=== PATIENT | male | born 1935 | race Caucasian/White ===

== ENCOUNTER 2018-06-26 10:53 | Emergency (ER) | payer MEDICARE ==
[~2018-06-26] VITALS: Ht 182.9 cm; Wt 102.6 kg
[~2018-06-26 10:53] MED LIST: ALBU8HFA PO; ASPI-1053 PO; BETA1TAB20 PO; CALC600T12 PO; CHLO4TAB PO; CLOP75TA15 PO; COU4T PO; DIPH-423 PO; FERR134T2 PO; FINA5TAB11 PO; HYDR-4353 PO; IRBE75TA9 PO; LORA0.5T PO; METO25TA6 PO; MULT-436 PO; OMEG1CAP54 PO; PANT40TA39 PO; PRED1TAB PO; ROSU20TA PO; TERA5CAP4 PO
[2018-06-26 11:40] LABS: BASOPHILS # (AUTO) 0.1 X10'3 (0-0.2); BASOPHILS % (AUTO) 0.8 % (0-1); EOSINOPHILS # (AUTO) 0.3 X10'3 (0-0.9); EOSINOPHILS % (AUTO) 2.8 % (0-6); HEMATOCRIT 37.2 % (42.0-52.0); HEMOGLOBIN 12.6 g/dl (14.0-17.9); LYMPHOCYTES % (AUTO) 10.6 % (21-51); MEAN CORPUSCULAR HEMOGLOBIN 32.8 PG (27.0-31.0); MEAN CORPUSCULAR HGB CONC 33.9 % (33.0-36.5); MEAN CORPUSCULAR VOLUME 96.8 FL (78-98); MEAN PLATELET VOLUME 6.8 FL (7.4-10.4); MONOCYTES # (AUTO) 0.8 X10'3 (0-0.9); MONOCYTES % (AUTO) 9.3 % (2-12); NEUTROPHILS % (AUTO) 76.5 % (42-75); PLATELET COUNT 190 X10'3 (140-440); RED BLOOD COUNT 3.84 X10'6 (4.70-6.10); RED CELL DISTRIBUTION WIDTH 13.4 % (11.5-14.5); WHITE BLOOD COUNT 9.1 X10'3 (4.5-11.0)
[2018-06-26 11:53] LABS: PARTIAL THROMBOPLASTIN TIME 25 SECONDS (22-32)
[2018-06-26 12:01] LABS: ALANINE AMINOTRANSFERASE 18 U/L (12-78); ALBUMIN 3.7 G/DL (3.4-5.0); ALBUMIN/GLOBULIN RATIO 1.1 (1.1-1.5); ALKALINE PHOSPHATASE 78 IU/L (46-116); ANION GAP 12 (8-16); ASPARTATE AMINO TRANSFERASE 21 U/L (10-37); BILIRUBIN,TOTAL 0.5 MG/DL (0.1-1.0); BLOOD UREA NITROGEN 31 MG/DL (7-18); BUN/CREATININE RATIO 22.6 (5.4-32.0); CALCIUM 8.9 MG/DL (8.5-10.1); CHLORIDE 101 MMOL/L (99-107); CREATININE 1.37 MG/DL (0.60-1.10); GLUCOSE 115 MG/DL (70-104); POTASSIUM 4.4 MMOL/L (3.5-5.1); SODIUM 137 MMOL/L (135-145); TOTAL CARBON DIOXIDE 24.3 MMOL/L (24-32); eGFR 50 ML/MIN
[2018-06-26] MEDS ORDERED: TRAM50TA2 PO (12:54)
[2018-06-26 13:03] VITALS: BP 163/90
== END 2018-06-26 13:07 | disposition home or self-care (01) ==
LOC: ER 10:53
DX: S51.032A Puncture wound without foreign body of left elbow, initial encounter (principal); S40.012A Contusion of left shoulder, initial encounter; S09.90XA Unspecified injury of head, initial encounter; I25.10 Atherosclerotic heart disease of native coronary artery without angina pectoris; E78.00 Pure hypercholesterolemia, unspecified; I10 Essential (primary) hypertension; G89.29 Other chronic pain; Z86.73 Personal history of transient ischemic attack (TIA), and cerebral infarction without residual deficits; Z98.61 Coronary angioplasty status; Z98.890 Other specified postprocedural states; Z88.2 Allergy status to sulfonamides; Z88.8 Allergy status to other drugs, medicaments and biological substances; Z79.82 Long term (current) use of aspirin; Z79.01 Long term (current) use of anticoagulants; Z79.899 Other long term (current) drug therapy; W01.0XXA Fall on same level from slipping, tripping and stumbling without subsequent striking against object, initial encounter; Y93.89 Activity, other specified; Y92.89 Other specified places as the place of occurrence of the external cause; Y99.8 Other external cause status
CPT/HCPCS: 36415; 70450; 71045; 72125; 72170; 73030; 73080; 80053; 84484; 85025; 85610; 85730; 93005; 99284

== ENCOUNTER 2018-08-12 19:59 | Emergency (ER) | payer MEDICARE ==
--- NOTE | 2018-08-12 20:49 | NUR ---
Patient tranported to CT on monitor by RN.
[2018-08-12] MEDS ORDERED: HYDROcodone/acetaminophen 10/325mg tab PO ONE (21:55)
[2018-08-12] MEDS ORDERED: tranexamic acid inj. 1,000 MG in normal saline 100ml IV soln 100 ML IV ONE (22:25)
[2018-08-12] MEDS ORDERED: ondansetron/PF 4mg/2ml inj IV ONE (23:00)
[2018-08-13] MEDS ORDERED: CEPH500C5 PO (00:20)
[2018-08-13] MEDS ORDERED: HYDR-4353 PO (00:20)
[2018-08-13] MEDS ORDERED: ondansetron/PF 4mg/2ml inj IV ONE (00:25)
[2018-08-13] MEDS ORDERED: ONDA4TAB6 PO (00:33)
[2018-08-13 01:09] VITALS: BP 132/98
== END 2018-08-13 01:12 | disposition home or self-care (01) ==
LOC: ER 19:59
DX: S02.32XA Fracture of orbital floor, left side, initial encounter for closed fracture (principal); S02.40DA Maxillary fracture, left side, initial encounter for closed fracture; S80.211A Abrasion, right knee, initial encounter; I25.10 Atherosclerotic heart disease of native coronary artery without angina pectoris; E78.00 Pure hypercholesterolemia, unspecified; I10 Essential (primary) hypertension; G89.29 Other chronic pain; Z86.73 Personal history of transient ischemic attack (TIA), and cerebral infarction without residual deficits; Z98.61 Coronary angioplasty status; Z98.890 Other specified postprocedural states; Z88.2 Allergy status to sulfonamides; Z88.8 Allergy status to other drugs, medicaments and biological substances; Z79.82 Long term (current) use of aspirin; Z79.01 Long term (current) use of anticoagulants; Z79.899 Other long term (current) drug therapy; W18.39XA Other fall on same level, initial encounter; Y93.89 Activity, other specified; Y92.89 Other specified places as the place of occurrence of the external cause; Y99.8 Other external cause status
CPT/HCPCS: 70450; 70486; 71045; 71100; 82948; 96365; 96375; 96376; 99284; J2405; J7030

== ENCOUNTER 2018-10-12 09:46 | Emergency (ER) | payer MEDICARE ==
[~2018-10-12] VITALS: Ht 182.9 cm; Wt 104.5 kg
[~2018-10-12 09:46] MED LIST changes: +CEPH500C5 PO; +ONDA4TAB6 PO; -ROSU20TA PO; +ROSU20TA2 PO
[2018-10-12 10:26] LABS: BASOPHILS # (AUTO) 0.1 X10'3 (0-0.2); BASOPHILS % (AUTO) 1.4 % (0-1); EOSINOPHILS # (AUTO) 0.3 X10'3 (0-0.9); EOSINOPHILS % (AUTO) 3.5 % (0-6); HEMATOCRIT 25.4 % (42.0-52.0); HEMOGLOBIN 8.5 g/dl (14.0-17.9); LYMPHOCYTES % (AUTO) 12.1 % (21-51); MEAN CORPUSCULAR HEMOGLOBIN 31.7 PG (27.0-31.0); MEAN CORPUSCULAR HGB CONC 33.5 g/dL (33.0-36.5); MEAN CORPUSCULAR VOLUME 94.5 FL (78-98); MEAN PLATELET VOLUME 6.7 FL (7.4-10.4); MONOCYTES # (AUTO) 0.8 X10'3 (0-0.9); MONOCYTES % (AUTO) 10.1 % (2-12); NEUTROPHILS # (AUTO) 6.1 X10'3 (1.8-7.7); NEUTROPHILS % (AUTO) 72.9 % (42-75); PLATELET COUNT 363 X10'3 (140-440); RED BLOOD COUNT 2.69 X10'6 (4.70-6.10); RED CELL DISTRIBUTION WIDTH 15.2 % (11.5-14.5); WHITE BLOOD COUNT 8.3 X10'3 (4.5-11.0)
[2018-10-12 10:38] LABS: ALANINE AMINOTRANSFERASE 13 U/L (12-78); ALBUMIN 2.6 G/DL (3.4-5.0); ALBUMIN/GLOBULIN RATIO 0.6 (1.1-1.5); ALKALINE PHOSPHATASE 130 IU/L (46-116); ANION GAP 7 (8-16); ASPARTATE AMINO TRANSFERASE 17 U/L (10-37); BILIRUBIN,TOTAL 0.3 MG/DL (0.1-1.0); BLOOD UREA NITROGEN 23 MG/DL (7-18); BUN/CREATININE RATIO 16.9 (5.4-32.0); CHLORIDE 102 MMOL/L (99-107); CREATININE 1.36 MG/DL (0.60-1.10); GLUCOSE 132 MG/DL (70-104); POTASSIUM 4.1 MMOL/L (3.5-5.1); SODIUM 138 MMOL/L (135-145); TOTAL CARBON DIOXIDE 28.7 MMOL/L (24-32); eGFR 50 ML/MIN
[2018-10-12] MEDS ORDERED: normal saline 1000ml 1,000 ML IV ONE (10:55)
[2018-10-12] MEDS ORDERED: clindamycin phosphate inj 600 MG in normal saline 50ml IV soln 50 ML IV ONE (11:00)
[2018-10-12] MEDS ORDERED: clindamycin 600mg/D5W 50ml 50 ML IV ONE (11:05)
[2018-10-12 11:33] LABS: CLARITY,URINE CLEAR (Clear); COLOR,URINE YELLOW (Yellow); GLUCOSE, URINE NEGATIVE (Neg); KETONES,URINE NEGATIVE (Neg); LEUKOCYTE ESTERASE ,URINE NEGATIVE (Neg); NITRITES, URINE NEGATIVE (Neg); OCCULT BLOOD,URINE NEGATIVE (Neg); PROTEIN,URINE NEGATIVE (Neg); UROBILINOGEN,URINE 0.2 E.U/dL (0.2-1.0)
[2018-10-12] MEDS ORDERED: iohexol 350MG/ML 100ml bottle IV ONE (11:36)
[2018-10-12] MEDS ORDERED: iohexol 300mg/ml 100ml inj. ONE (11:40)
[2018-10-12 12:08] LABS: UA COLLECTION TYPE VOIDED
--- NOTE | 2018-10-12 12:46 | NUR ---
Unable to get ahold of Dr. Ocasio- IR. Call placed to Danni (director of imaging) to have her get in touch with him.
[2018-10-12] MEDS ORDERED: LORazepam 2 mg/ml vial IV ONE (13:40)
[2018-10-12 14:39] LABS: INR 1.1 INR; PROTHROMBIN TIME 10.9 SECONDS (9.0-12.0)
[2018-10-12] MEDS ORDERED: LIDOcaine 1%/PF 5ML 10 MG/ML VIAL ONE (14:53)
--- NOTE | 2018-10-12 15:11 | NUR ---
PT SLEEPING, NO APPARENT DISTRESS, RESPIRATIONS SPONTANEOUS AND REGULAR.
[2018-10-12 15:13] VITALS: BP 105/69
[2018-10-12 15:28] VITALS: BP 101/69
[2018-10-12] MEDS ORDERED: AMOX-419 PO (16:44)
[2018-10-12] MEDS ORDERED: CLIN150C2 PO (16:44)
[2018-10-12 17:14] VITALS: BP 161/114
== END 2018-10-12 18:06 | disposition home or self-care (01) ==
LOC: ER 09:46
DX: I97.89 Other postprocedural complications and disorders of the circulatory system, not elsewhere classified (principal); L03.314 Cellulitis of groin; I25.10 Atherosclerotic heart disease of native coronary artery without angina pectoris; E78.00 Pure hypercholesterolemia, unspecified; G89.29 Other chronic pain; I10 Essential (primary) hypertension; Z86.73 Personal history of transient ischemic attack (TIA), and cerebral infarction without residual deficits; Z95.5 Presence of coronary angioplasty implant and graft; Z98.890 Other specified postprocedural states; Z88.8 Allergy status to other drugs, medicaments and biological substances; Z88.2 Allergy status to sulfonamides; Z79.82 Long term (current) use of aspirin; Z79.899 Other long term (current) drug therapy; Z79.01 Long term (current) use of anticoagulants
CPT/HCPCS: 10160; 36415; 72193; 76942; 80053; 81003; 83605; 84145; 85025; 85610; 87040; 87070; 96365; 96375; 99285; J2001; J2060; J7030; Q9967; 87077; J3490; J7040

== ENCOUNTER 2018-10-28 08:47 | Outpatient (CLI) | payer MEDICARE | END 2018-10-28 23:59 | disposition home or self-care (01) | LOC: VAS 08:47 | PROVIDERS: ATTEND Surgery | DX: R60.0 Localized edema (principal); M79.605 Pain in left leg; L76.34 Postprocedural seroma of skin and subcutaneous tissue following other procedure; I10 Essential (primary) hypertension; Z87.891 Personal history of nicotine dependence | CPT/HCPCS: 76882; 93971 ==

== ENCOUNTER 2018-11-04 10:44 | Day surgery (SDC) | payer MEDICARE ==
[~2018-11-04] VITALS: Ht 182.9 cm; Wt 102.2 kg
[2018-11-04 12:05] VITALS: BP 150/77
[2018-11-04] MEDS ORDERED: LIDOcaine 1% 30ml preserv. free vial IJ STA (12:13)
[2018-11-04] MEDS ORDERED: APIX5TAB3 PO (12:19)
[2018-11-04] MEDS ORDERED: CHOL100046 PO (12:19)
[2018-11-04] MEDS ORDERED: ACET-2119 PO (12:19)
[2018-11-04] MEDS ORDERED: FERR325T28 PO (12:19)
[2018-11-04] MEDS ORDERED: MAGN400T29 PO (12:19)
[2018-11-04] MEDS ORDERED: GABA-532 PO (12:19)
[2018-11-04] MEDS ORDERED: HYDR-3686 PO (12:19)
[2018-11-04] MEDS ORDERED: FURO-149 PO (12:19)
[2018-11-04] MEDS ORDERED: ATOR40TA PO (12:19)
[2018-11-04] MEDS ORDERED: PHEN15SP NAS (12:19)
[2018-11-04] MEDS ORDERED: NITR0.4T51 SL (12:19)
[2018-11-04] MEDS ORDERED: LORA0.5T PO (12:19)
[2018-11-04 13:00] VITALS: BP 166/81
[2018-11-04 13:25] VITALS: BP 165/49
[2018-11-04 15:45] VITALS: BP 164/78
[2018-11-04 18:05] VITALS: BP 151/69
== END 2018-11-04 18:05 | disposition home or self-care (01) ==
LOC: SSTAY O 10:44
PROVIDERS: ATTEND Radiology Vascular & Interventional Radiology
DX: L76.34 Postprocedural seroma of skin and subcutaneous tissue following other procedure (principal); I25.10 Atherosclerotic heart disease of native coronary artery without angina pectoris; E78.5 Hyperlipidemia, unspecified; Z98.890 Other specified postprocedural states; I12.9 Hypertensive chronic kidney disease with stage 1 through stage 4 chronic kidney disease, or unspecified chronic kidney disease; G89.29 Other chronic pain; Z86.718 Personal history of other venous thrombosis and embolism; N18.3 Chronic kidney disease, stage 3 (moderate); Z86.73 Personal history of transient ischemic attack (TIA), and cerebral infarction without residual deficits
CPT/HCPCS: 10160; 76942; 87070; 87075; 93971; J3490; 10030

== ENCOUNTER 2018-11-05 08:54 | Emergency (ER) | payer MEDICARE ==
[~2018-11-05] VITALS: Ht 182.9 cm; Wt 100.1 kg
[~2018-11-05 08:54] MED LIST changes: +ACET-2119 PO; +APIX5TAB3 PO; -ASPI-1053 PO; +ATOR40TA PO; -CALC600T12 PO; -CEPH500C5 PO; -CHLO4TAB PO; +CHOL100046 PO; -CLOP75TA15 PO; -COU4T PO; -DIPH-423 PO; -FERR134T2 PO; +FERR325T28 PO; +FURO-149 PO; +GABA-532 PO; +HYDR-3686 PO; -IRBE75TA9 PO; +MAGN400T29 PO; +NITR0.4T51 SL; -OMEG1CAP54 PO; -ONDA4TAB6 PO; -PANT40TA39 PO; +PHEN15SP NAS; -PRED1TAB PO; -ROSU20TA2 PO; -TERA5CAP4 PO
[2018-11-05 10:23] LABS: BASOPHILS % (AUTO) 0.3 % (0-1); EOSINOPHILS # (AUTO) 0.3 X10'3 (0-0.9); EOSINOPHILS % (AUTO) 4.3 % (0-6); HEMATOCRIT 31.3 % (42.0-52.0); HEMOGLOBIN 10.3 g/dl (14.0-17.9); LYMPHOCYTES # (AUTO) 0.8 X10'3 (1.1-4.8); LYMPHOCYTES % (AUTO) 9.9 % (21-51); MEAN CORPUSCULAR HEMOGLOBIN 29.8 PG (27.0-31.0); MEAN CORPUSCULAR HGB CONC 32.8 g/dL (33.0-36.5); MEAN CORPUSCULAR VOLUME 90.7 FL (78-98); MEAN PLATELET VOLUME 6.8 FL (7.4-10.4); MONOCYTES # (AUTO) 0.7 X10'3 (0-0.9); MONOCYTES % (AUTO) 8.8 % (2-12); NEUTROPHILS # (AUTO) 6.1 X10'3 (1.8-7.7); NEUTROPHILS % (AUTO) 76.7 % (42-75); PLATELET COUNT 302 X10'3 (140-440); RED BLOOD COUNT 3.45 X10'6 (4.70-6.10); RED CELL DISTRIBUTION WIDTH 16.5 % (11.5-14.5); WHITE BLOOD COUNT 7.9 X10'3 (4.5-11.0)
[2018-11-05 10:32] LABS: ALANINE AMINOTRANSFERASE 12 U/L (12-78); ALBUMIN/GLOBULIN RATIO 0.7 (1.1-1.5); ALKALINE PHOSPHATASE 109 IU/L (46-116); ANION GAP 8 (8-16); ASPARTATE AMINO TRANSFERASE 18 U/L (10-37); BILIRUBIN,TOTAL 0.4 MG/DL (0.1-1.0); BLOOD UREA NITROGEN 21 MG/DL (7-18); BUN/CREATININE RATIO 13.5 (5.4-32.0); CALCIUM 9.7 MG/DL (8.5-10.1); CHLORIDE 104 MMOL/L (99-107); CREATININE 1.55 MG/DL (0.60-1.10); GLUCOSE 109 MG/DL (70-104); POTASSIUM 4.1 MMOL/L (3.5-5.1); SODIUM 141 MMOL/L (135-145); TOTAL CARBON DIOXIDE 29.1 MMOL/L (24-32); TOTAL PROTEIN 7.4 G/DL (6.4-8.2); eGFR 43 ML/MIN
[2018-11-05 10:57] VITALS: BP 109/64
[2018-11-05] MEDS ORDERED: iohexol 300mg/ml 100ml inj. ONE (11:08)
--- NOTE | 2018-11-05 11:31 | NUR ---
back from ct scan in stable condition.
== END 2018-11-05 13:01 | disposition home or self-care (01) ==
LOC: ER 08:54
DX: R10.32 Left lower quadrant pain (principal); L53.8 Other specified erythematous conditions; I25.10 Atherosclerotic heart disease of native coronary artery without angina pectoris; E78.00 Pure hypercholesterolemia, unspecified; I10 Essential (primary) hypertension; G89.29 Other chronic pain; Z86.73 Personal history of transient ischemic attack (TIA), and cerebral infarction without residual deficits; Z95.5 Presence of coronary angioplasty implant and graft; Z98.890 Other specified postprocedural states; Z87.891 Personal history of nicotine dependence; Z79.01 Long term (current) use of anticoagulants; Z79.899 Other long term (current) drug therapy; Z79.82 Long term (current) use of aspirin; Z88.8 Allergy status to other drugs, medicaments and biological substances
CPT/HCPCS: 36415; 74176; 80053; 84145; 85025; 99285; Q9967

== ENCOUNTER 2018-11-11 13:49 | Inpatient (IN) | payer MEDICARE ==
[~2018-11-11] VITALS: Ht 182.9 cm; Wt 101.1 kg
[~2018-11-11 13:49] MED LIST changes: +ASPI-1053 PO; +CALC600T12 PO; +CEPH500C5 PO; +CHLO4TAB PO; +CLOP75TA15 PO; +COU4T PO; +DIPH-423 PO; +FERR134T2 PO; +IRBE75TA9 PO; +OMEG1CAP54 PO; +ONDA4TAB6 PO; +PANT40TA39 PO; +PRED1TAB PO; +ROSU20TA2 PO; +TERA5CAP4 PO
[2018-11-11 14:57] LABS: BASOPHILS % (AUTO) 0.3 % (0-1); EOSINOPHILS # (AUTO) 0.3 X10'3 (0-0.9); EOSINOPHILS % (AUTO) 2.2 % (0-6); HEMATOCRIT 32.9 % (42.0-52.0); HEMOGLOBIN 10.5 g/dl (14.0-17.9); LYMPHOCYTES # (AUTO) 0.6 X10'3 (1.1-4.8); LYMPHOCYTES % (AUTO) 4.1 % (21-51); MEAN CORPUSCULAR VOLUME 90.5 FL (78-98); MEAN PLATELET VOLUME 6.8 FL (7.4-10.4); MONOCYTES # (AUTO) 1.2 X10'3 (0-0.9); MONOCYTES % (AUTO) 7.9 % (2-12); NEUTROPHILS # (AUTO) 13.4 X10'3 (1.8-7.7); NEUTROPHILS % (AUTO) 85.5 % (42-75); PLATELET COUNT 319 X10'3 (140-440); RED BLOOD COUNT 3.63 X10'6 (4.70-6.10); RED CELL DISTRIBUTION WIDTH 16.8 % (11.5-14.5); WHITE BLOOD COUNT 15.6 X10'3 (4.5-11.0)
[2018-11-11 15:12] LABS: ALANINE AMINOTRANSFERASE 12 U/L (12-78); ALBUMIN 3.2 G/DL (3.4-5.0); ALBUMIN/GLOBULIN RATIO 0.7 (1.1-1.5); ALKALINE PHOSPHATASE 111 IU/L (46-116); ANION GAP 12 (8-16); ASPARTATE AMINO TRANSFERASE 20 U/L (10-37); BILIRUBIN,TOTAL 0.4 MG/DL (0.1-1.0); BLOOD UREA NITROGEN 16 MG/DL (7-18); CALCIUM 9.2 MG/DL (8.5-10.1); CHLORIDE 99 MMOL/L (99-107); CREATININE 1.46 MG/DL (0.60-1.10); GLUCOSE 100 MG/DL (70-104); POTASSIUM 3.7 MMOL/L (3.5-5.1); SODIUM 138 MMOL/L (135-145); TOTAL CARBON DIOXIDE 27.5 MMOL/L (24-32); TOTAL PROTEIN 7.9 G/DL (6.4-8.2); eGFR 46 ML/MIN
[2018-11-11 15:13] LABS: PARTIAL THROMBOPLASTIN TIME 29 SECONDS (22-32)
[2018-11-11 15:14] LABS: ANISOCYTOSIS 1+; PLATELET ESTIMATE NORMAL; TOTAL CELLS COUNTED 100
[2018-11-11] MEDS ORDERED: acetaminophen 325mg tablet PO ONE (16:20)
[2018-11-11 16:52] LABS: CLARITY,URINE CLEAR (Clear); COLOR,URINE YELLOW (Yellow); GLUCOSE, URINE NEGATIVE (Neg); KETONES,URINE NEGATIVE (Neg); LEUKOCYTE ESTERASE ,URINE NEGATIVE (Neg); NITRITES, URINE NEGATIVE (Neg); OCCULT BLOOD,URINE TRACE-LYSED (Neg); PROTEIN,URINE NEGATIVE (Neg); UROBILINOGEN,URINE 0.2 E.U/dL (0.2-1.0)
[2018-11-11 16:55] LABS: UA COLLECTION TYPE URINAL
[2018-11-11 17:03] LABS: BACTERIA,URINE NONE SEEN /HPF (Neg); MUCUS STRANDS NONE SEEN /LPF (Neg); RBC,URINE NONE SEEN /HPF (0-2); SQUAMOUS EPITHELIAL CELL,UR NONE SEEN /LPF (FEW); WBC,URINE NONE SEEN /HPF (0-4)
[2018-11-11] MEDS ORDERED: vancomycin/NS 1 GM ADD-VANTAGE 250 ML IV ONE (17:50)
[2018-11-11] MEDS ORDERED: potassium Cl 20 mEq SR tablet PO PRN ×2 (18:05)
[2018-11-11] MEDS ORDERED: magnesium 2GM in 50ml NS 50 ML IV PRN (18:05)
[2018-11-11] MEDS ORDERED: potassium Cl 40MEQ/NS 500ml 500 ML IV PRN ×2 (18:05)
[2018-11-11] MEDS ORDERED: piperacillin/tazo 3.375gm/50ml 50 ML IV ONE (18:05)
[2018-11-11] MEDS ORDERED: magnesium Cl slow-release 64mg tablet PO PRN (18:05)
[2018-11-11] MEDS ORDERED: magnesium 4gm in 100ml NS 100 ML IV PRN (18:05)
[2018-11-11] MEDS ORDERED: acetaminophen 325mg tablet PO PRN ×2 (18:05)
[2018-11-11] MEDS: normal saline 1000ml 1,000 ML IV SCH (18:16)
[2018-11-11] MEDS: ondansetron/PF 4mg/2ml inj IV PRN (19:47)
[2018-11-11] MEDS: HYDROcodone/acetaminophen 5mg/325mg tablet PO PRN ×2 (19:48→23:58)
[2018-11-11] MEDS: docusate sod 100mg capsule PO SCH (20:19)
[2018-11-11] MEDS: heparin, porcine 5000 units/ml vial SQ SCH (20:19)
[2018-11-11 21:30] VITALS: BP 101/51
[2018-11-12] VITALS (9 sets, daily range): BP systolic 109–160; BP diastolic 51–74
--- NOTE | 2018-11-12 06:15 | NUR ---
0615 pt really rude and verbally aggressive at this time. oxygen saturation checked and was in the low 80s, pt put on 4L NC. However, pt will not breath through nose and refuses to allowing nursing to put the cannula in his mouth. pt stated "I will show you where to shove this" if asked to put the NC in his mouth. Pt spitting up clear fluids. will call
--- NOTE | 2018-11-12 06:15 | NUR ---
Problems reprioritized. Patient report given, questions answered & plan of care reviewed with Rodriguez RN. Pt in distress, having difficulty breathing see other notes.
--- NOTE | 2018-11-12 06:30 | NUR ---
Patient in room [facility] 359. I have received report from SHANE Cedeno and had the opportunity to ask questions and assume patient care.
--- NOTE | 2018-11-12 06:35 | NUR ---
Dr. Mondragon was called. pt complaining of nervousness and having a difficulty breathing. pt shaking. BP 146/74, oxygen 82-89% on 4L NC. when pt allowed the NC to be placed in mouth and sat up oxygen 91-94%. temp 99.2F, heart rate 71-108 pt currently in afib according to tele. 0645 Dr Mondragon came up and saw the pt. Stated "lungs don't sound wet" and ordered IS to be given and stat CXR. IS given to pt. pt refusing to use IS and states that it causes him to "hyperventilate." Pt tried to use IS once, barely, and stated "I already tried, you saw me" pt annoyed at this time. will make day shift aware of new orders. Addendum: 11/12/18 at 0713 by Pao Al RN Dr. Mondragon was called. pt complaining of nervousness and having a difficulty breathing. pt shaking. BP 146/74, oxygen 82-89% on 4L NC. when pt allowed the NC to be placed in mouth and sat up oxygen 91-94%. temp 99.2F, heart rate 71-108 pt currently in afib according to tele. pt is also spitting up clear fluid 0645 Dr Mondragon came up and saw the pt. Stated "lungs don't sound wet" and ordered IS to be given and stat CXR. IS given to pt. pt refusing to use IS and states that it causes him to "hyperventilate." Pt tried to use IS once, barely, and stated "I already tried, you saw me" pt annoyed at this time. will make day shift aware of new orders.
[2018-11-12] MEDS: heparin, porcine 5000 units/ml vial SQ SCH ×2 (08:00→20:10)
[2018-11-12] MEDS: docusate sod 100mg capsule PO SCH ×2 (08:00→19:56)
[2018-11-12] MEDS: K and/or MAG REPLACEMENT MC SCH (08:00)
[2018-11-12 08:21] LABS: EOSINOPHILS # (AUTO) 0.1 X10'3 (0-0.9)
[2018-11-12] MEDS: normal saline 1000ml 1,000 ML IV SCH ×2 (08:22→19:00)
[2018-11-12 08:23] LABS: BASOPHILS % (AUTO) 0 % (0-1); EOSINOPHILS % (AUTO) 0.5 % (0-6); HEMATOCRIT 31.1 % (42.0-52.0); LYMPHOCYTES # (AUTO) 0.5 X10'3 (1.1-4.8); LYMPHOCYTES % (AUTO) 2.9 % (21-51); MEAN CORPUSCULAR HGB CONC 32.2 g/dL (33.0-36.5); MEAN CORPUSCULAR VOLUME 90.1 FL (78-98); MEAN PLATELET VOLUME 6.9 FL (7.4-10.4); MONOCYTES # (AUTO) 1.2 X10'3 (0-0.9); MONOCYTES % (AUTO) 6.7 % (2-12); NEUTROPHILS # (AUTO) 16.7 X10'3 (1.8-7.7); NEUTROPHILS % (AUTO) 89.9 % (42-75); PLATELET COUNT 277 X10'3 (140-440); RED BLOOD COUNT 3.45 X10'6 (4.70-6.10); RED CELL DISTRIBUTION WIDTH 17.1 % (11.5-14.5); WHITE BLOOD COUNT 18.5 X10'3 (4.5-11.0)
[2018-11-12 08:33] LABS: ALBUMIN 2.8 G/DL (3.4-5.0); ANION GAP 10 (8-16); BLOOD UREA NITROGEN 18 MG/DL (7-18); BUN/CREATININE RATIO 11.3 (5.4-32.0); CALCIUM 9.1 MG/DL (8.5-10.1); CHLORIDE 101 MMOL/L (99-107); CREATININE 1.59 MG/DL (0.60-1.10); GLUCOSE 127 MG/DL (70-104); MAGNESIUM 1.8 MG/DL (1.5-2.4); POTASSIUM 3.9 MMOL/L (3.5-5.1); SODIUM 136 MMOL/L (135-145); TOTAL CARBON DIOXIDE 24.7 MMOL/L (24-32); eGFR 42 ML/MIN
[2018-11-12 09:40] LABS: TOTAL CELLS COUNTED 100
[2018-11-12 09:43] LABS: ANISOCYTOSIS 1+; PLATELET ESTIMATE NORMAL
[2018-11-12] MEDS ORDERED: LIDOcaine 1%/PF 5ML 10 MG/ML VIAL ONE (12:22)
--- NOTE | 2018-11-12 16:00 | NUR ---
Received call from lab regarding this patient's drainage from L groin wound that was drained. gram positive cocci in clusters. NOtified Dr. Fallon. no new orders.
[2018-11-12] MEDS: piperacillin/tazo 3.375gm/50ml 50 ML IV SCH ×2 (16:10→23:48)
[2018-11-12] MEDS: aspirin 81mg tablet.DR PO SCH (16:10)
[2018-11-12 16:22] LABS: LYMPHOCYTES,BODY FLUID 3 %; MONOCYTES,BODY FLUID 1 %; NEUTROPHILS,BODY FLUID 96 %
[2018-11-12 16:24] LABS: BF RBC COUNT 267296 /CU MM; BF WBC COUNT 18726 /CU MM (0-1000); BFAPPEAR BLOODY; BFCOLOR RED; BFVOLUME 60 ML
[2018-11-12] MEDS: ondansetron/PF 4mg/2ml inj IV PRN (18:33)
--- NOTE | 2018-11-12 18:37 | NUR ---
Problems reprioritized. Patient report given, questions answered & plan of care reviewed with SHANE Cedeno.
[2018-11-12] MEDS: lactobacillus rhamnosus 10,000 MMU CELLS/CAPSULE PO SCH (19:56)
--- NOTE | 2018-11-12 23:55 | NUR ---
PT was short of breath. requested inhaler. called Dr. Flannery, RT eval and treat was orders. will continue to monitor.
[2018-11-13] VITALS (15 sets, daily range): BP systolic 90–186; BP diastolic 45–90
--- NOTE | 2018-11-13 00:11 | NUR ---
Dr. Flannery made aware of 8 beat run of V-tach. RR 16, 96% RA, 132/51, HR 70. pt states he feels just fine. K 3.9, Mg 1.8. NO new orders. will continue to monitor.
[2018-11-13] MEDS ORDERED: albuterol 2.5 MG/3 ML nebule NEB PRN (00:20)
[2018-11-13] MEDS ORDERED: albuterol 2.5 MG/3 ML nebule ONE (00:26)
[2018-11-13] MEDS: normal saline 1000ml 1,000 ML IV SCH ×2 (05:00→18:34)
--- NOTE | 2018-11-13 06:35 | NUR ---
Problems reprioritized. Patient report given, questions answered & plan of care reviewed with Tiesha LYNN. pt nervous about surgery. call light and frq used belongings within reach. no signs of distress. a/o.
[2018-11-13 06:39] LABS: BASOPHILS # (AUTO) 0.1 X10'3 (0-0.2); BASOPHILS % (AUTO) 0.8 % (0-1); EOSINOPHILS # (AUTO) 0.2 X10'3 (0-0.9); EOSINOPHILS % (AUTO) 1.1 % (0-6); HEMATOCRIT 30.1 % (42.0-52.0); HEMOGLOBIN 9.7 g/dl (14.0-17.9); LYMPHOCYTES # (AUTO) 1.1 X10'3 (1.1-4.8); LYMPHOCYTES % (AUTO) 7.3 % (21-51); MEAN CORPUSCULAR HEMOGLOBIN 29.1 PG (27.0-31.0); MEAN CORPUSCULAR HGB CONC 32.2 g/dL (33.0-36.5); MEAN CORPUSCULAR VOLUME 90.1 FL (78-98); MEAN PLATELET VOLUME 6.8 FL (7.4-10.4); MONOCYTES # (AUTO) 1.1 X10'3 (0-0.9); MONOCYTES % (AUTO) 7.5 % (2-12); NEUTROPHILS # (AUTO) 12.3 X10'3 (1.8-7.7); NEUTROPHILS % (AUTO) 83.3 % (42-75); PLATELET COUNT 241 X10'3 (140-440); RED BLOOD COUNT 3.34 X10'6 (4.70-6.10); RED CELL DISTRIBUTION WIDTH 16.6 % (11.5-14.5); WHITE BLOOD COUNT 14.7 X10'3 (4.5-11.0)
[2018-11-13 06:49] LABS: ALBUMIN 2.6 G/DL (3.4-5.0); ANION GAP 10 (8-16); BLOOD UREA NITROGEN 19 MG/DL (7-18); BUN/CREATININE RATIO 12.6 (5.4-32.0); CALCIUM 8.8 MG/DL (8.5-10.1); CHLORIDE 102 MMOL/L (99-107); CREATININE 1.51 MG/DL (0.60-1.10); GLUCOSE 118 MG/DL (70-104); MAGNESIUM 1.9 MG/DL (1.5-2.4); POTASSIUM 3.5 MMOL/L (3.5-5.1); SODIUM 137 MMOL/L (135-145); TOTAL CARBON DIOXIDE 25.3 MMOL/L (24-32); eGFR 44 ML/MIN
[2018-11-13] MEDS: aspirin 81mg tablet.DR PO SCH (07:26)
[2018-11-13] MEDS: docusate sod 100mg capsule PO SCH ×2 (07:26→20:00)
[2018-11-13] MEDS: lactobacillus rhamnosus 10,000 MMU CELLS/CAPSULE PO SCH ×2 (07:26→21:15)
[2018-11-13] MEDS: heparin, porcine 5000 units/ml vial SQ SCH (07:26)
[2018-11-13] MEDS: K and/or MAG REPLACEMENT MC SCH (08:00)
[2018-11-13] MEDS ORDERED: ringers solution, lacted 1,000 ML IV SCH (08:16)
[2018-11-13] MEDS ORDERED: morphine 4 MG/ML inj SYRINge IV PRN ×2 (08:20)
[2018-11-13] MEDS ORDERED: labetalol 20mg/4ml (5mg/ml) syringe IV PRN (08:20)
[2018-11-13] MEDS ORDERED: hydrALAZINE 20mg/ml inj. IV PRN (08:20)
[2018-11-13] MEDS ORDERED: fentaNYL/PF 50MCG/1 ML 2ML syringe IV PRN ×2 (08:20)
[2018-11-13] MEDS ORDERED: ondansetron/PF 4mg/2ml inj IV PRN (08:20)
[2018-11-13] MEDS: piperacillin/tazo 3.375gm/50ml 50 ML IV SCH ×2 (08:44→19:43)
[2018-11-13] MEDS ORDERED: heparin 10,000 units/1 ML INJ ONE (08:50)
[2018-11-13] MEDS ORDERED: sevoflurane 250ml liquid IH ONE (09:22)
[2018-11-13] MEDS ORDERED: dexamethasone sod phosphate 10mg/ml inj ONE (09:22)
[2018-11-13] MEDS ORDERED: succinylcholine 20mg/ml inj IV ONE (09:30)
[2018-11-13] MEDS ORDERED: propofol inj 20 ML IV ONE (09:30)
[2018-11-13] MEDS ORDERED: LIDOcaine 2% (20mg/ml) 5ml vial ONE (09:30)
[2018-11-13] MEDS ORDERED: midazolam 2 mg/2 ml injection ONE (09:31)
[2018-11-13] MEDS ORDERED: fentaNYL/PF 50MCG/1 ML 2ML syringe ONE ×4 (09:31→15:35)
[2018-11-13] MEDS ORDERED: ondansetron/PF 4mg/2ml inj ONE (09:43)
[2018-11-13] MEDS ORDERED: rocuronium 10mg/ml inj IV ONE ×3 (10:10→13:59)
[2018-11-13] MEDS ORDERED: heparin 1,000unit/ml 10ml vial 10 ML ONE (10:11)
[2018-11-13] MEDS ORDERED: iohexol 300 MG/1 ML 50ml polymer ONE (10:14)
[2018-11-13] MEDS ORDERED: albumin (Human) 5% 250ml 250 ML IV ONE ×6 (10:36→20:45)
[2018-11-13] MEDS ORDERED: labetalol 20mg/4ml (5mg/ml) syringe IV ONE (11:10)
[2018-11-13] MEDS ORDERED: hydrALAZINE 20mg/ml inj. IV ONE (13:38)
[2018-11-13] MEDS ORDERED: hydrOXYzine 25 MG tablet PO PRN (13:45)
[2018-11-13] MEDS ORDERED: MIDAZolam 5mg/5ml vial ONE (14:00)
[2018-11-13] MEDS ORDERED: midazolam 100mg in NS 100ml 100 ML IV PRN (14:10)
[2018-11-13] MEDS ORDERED: NORepinephrine 1 mg/ml inj IV ONE (14:11)
[2018-11-13 14:25] LABS: ISTAT IONIZED CALCIUM 1.09 mmol/L (1.03-1.32); ISTAT K 3.8 mmol/L (3.5-5.1)
[2018-11-13] MEDS ORDERED: fentaNYL 10MCG/ML in NS 50ML 50 ML IV SCH (14:26)
[2018-11-13 14:44] LABS: ISTAT HGB 6.8 g/dl (14.0-18.0)
[2018-11-13] MEDS ORDERED: FENTANYL-0.9 % NACL/PF 100 ML IV PRN (16:33)
[2018-11-13] MEDS ORDERED: Potassium Cl inj 20 MEQ in ringers solution, lacted 1,000 ML IV SCH (16:50)
[2018-11-13 16:51] LABS: ABG BASE EXCESS -2.8 mmol/L (-2.0-3.0); ABG HCO3 22.1 mmol/L (22.0-26.0); ABG OXYGEN SATURATION 98.8 % (95-98); ABG PCO2 (T) 37.2 mmHg (35.0-48.0); ABG PH (T) 7.388 (7.350-7.450); ABG PO2 (T) 150.9 mmHg (83-108); FCOHb 0.3 % (0.5-1.5); FMetHb 0.2 % (0.3-1.12); FO2Hb 98.3 % (94-100); MINUTE VOLUME 6 L/min; PATIENT TEMPERATURE 36.1; PEEP 5 cm H2O; RESPIRATORY RATE 10 b/min; RESPIRATORY RATE (OBSERVED) 10 b/min; TIDAL VOLUME 600 mL; TOTAL HEMOGLOBIN 11.2 G/dl (14.0-18.0)
--- NOTE | 2018-11-13 17:45 | NUR ---
received pt from OR via bed. placed on moitor. he is on a vent. hypertensive and fentanyl is given.
--- NOTE | 2018-11-13 18:00 | NUR ---
wound vac is set at 75 with minimal output of serous fluid.
--- NOTE | 2018-11-13 18:25 | NUR ---
Patient in room CICU 2011. I have received report from Stephania LYNN and had the opportunity to ask questions and assume patient care. Patient currently intubated, waking up and becoming restless in bed. Sedation increased to versed 4ml/hr, fentanyl increased to 2.5 ml/hr, current BP via arterial line in 170s systolically. Versed bolus given to relieve anxiety. Incision site CDI at this time, woundvac running at 75 mHg with minimal sanguineous drainage noted in cannister. Will continue to monitor patient closely.
[2018-11-13 19:26] LABS: HEMATOCRIT 30.4 % (42.0-52.0); MEAN CORPUSCULAR HEMOGLOBIN 28.6 PG (27.0-31.0); MEAN CORPUSCULAR VOLUME 86.7 FL (78-98); PLATELET COUNT 192 X10'3 (140-440); RED CELL DISTRIBUTION WIDTH 16.6 % (11.5-14.5); WHITE BLOOD COUNT 11.4 X10'3 (4.5-11.0)
[2018-11-13 19:29] LABS: ALANINE AMINOTRANSFERASE 10 U/L (12-78); ALBUMIN 2.2 G/DL (3.4-5.0); ALBUMIN/GLOBULIN RATIO 0.7 (1.1-1.5); ALKALINE PHOSPHATASE 61 IU/L (46-116); ANION GAP 5 (8-16); ASPARTATE AMINO TRANSFERASE 13 U/L (10-37); BILIRUBIN,TOTAL 1.2 MG/DL (0.1-1.0); BLOOD UREA NITROGEN 17 MG/DL (7-18); BUN/CREATININE RATIO 14.4 (5.4-32.0); CALCIUM 7.6 MG/DL (8.5-10.1); CHLORIDE 107 MMOL/L (99-107); CREATININE 1.18 MG/DL (0.60-1.10); GLUCOSE 164 MG/DL (70-104); INR 1.1 INR; MAGNESIUM 1.7 MG/DL (1.5-2.4); PARTIAL THROMBOPLASTIN TIME 34 SECONDS (22-32); POTASSIUM 4.4 MMOL/L (3.5-5.1); SODIUM 137 MMOL/L (135-145); TOTAL CARBON DIOXIDE 24.7 MMOL/L (24-32); TOTAL PROTEIN 5.4 G/DL (6.4-8.2); eGFR 59 ML/MIN
[2018-11-13] MEDS: potassium CL 20mEq in D5-1/2NS 1,000 ML IV SCH (19:43)
[2018-11-13] MEDS ORDERED: apixaban 5mg tablet PO SCH (20:00)
[2018-11-13] MEDS: metoprolol tartrate 25mg tablet PO SCH (20:00)
--- NOTE | 2018-11-13 20:40 | NUR ---
worsted winder Flavio Dudley spoke with Dr. Adamson over phone concerning patient's decreased BP with sedation, decreased albumin level, and increased PPV. New orders received for albumin. worsted winder also verifying whether new eliquis order should be given tonight. Dr. Adamson gave expense analyst orders to DC eliquis.
[2018-11-13] MEDS: finasteride 5mg tablet PO SCH (21:00)
[2018-11-13] MEDS: gabapentin 300mg capsule PO SCH (21:15)
[2018-11-13] MEDS: atorvastatin 20mg tablet PO SCH (21:16)
[2018-11-14] VITALS (29 sets, daily range): BP systolic 97–191; BP diastolic 41–73
[2018-11-14] MEDS: piperacillin/tazo 3.375gm/50ml 50 ML IV SCH ×3 (00:16→15:43)
[2018-11-14] MEDS: potassium CL 20mEq in D5-1/2NS 1,000 ML IV SCH ×2 (00:50→08:50)
[2018-11-14 04:07] LABS: ALBUMIN 2.6 G/DL (3.4-5.0); ANION GAP 7 (8-16); BLOOD UREA NITROGEN 16 MG/DL (7-18); BUN/CREATININE RATIO 13.6 (5.4-32.0); CALCIUM 7.7 MG/DL (8.5-10.1); CHLORIDE 107 MMOL/L (99-107); CREATININE 1.18 MG/DL (0.60-1.10); GLUCOSE 166 MG/DL (70-104); MAGNESIUM 1.7 MG/DL (1.5-2.4); POTASSIUM 4.4 MMOL/L (3.5-5.1); SODIUM 139 MMOL/L (135-145); TOTAL CARBON DIOXIDE 24.6 MMOL/L (24-32); eGFR 59 ML/MIN
[2018-11-14 04:18] LABS: BASOPHILS % (AUTO) 0.3 % (0-1); EOSINOPHILS % (AUTO) 0 % (0-6); HEMATOCRIT 23.3 % (42.0-52.0); HEMOGLOBIN 7.8 g/dl (14.0-17.9); LYMPHOCYTES # (AUTO) 0.5 X10'3 (1.1-4.8); MEAN CORPUSCULAR HEMOGLOBIN 29.2 PG (27.0-31.0); MEAN CORPUSCULAR HGB CONC 33.6 g/dL (33.0-36.5); MEAN CORPUSCULAR VOLUME 86.8 FL (78-98); MEAN PLATELET VOLUME 7.4 FL (7.4-10.4); MONOCYTES # (AUTO) 0.9 X10'3 (0-0.9); MONOCYTES % (AUTO) 9.2 % (2-12); NEUTROPHILS # (AUTO) 8.3 X10'3 (1.8-7.7); NEUTROPHILS % (AUTO) 85.5 % (42-75); PLATELET COUNT 147 X10'3 (140-440); RED BLOOD COUNT 2.69 X10'6 (4.70-6.10); RED CELL DISTRIBUTION WIDTH 16.9 % (11.5-14.5); WHITE BLOOD COUNT 9.7 X10'3 (4.5-11.0)
[2018-11-14 04:36] LABS: ABG BASE EXCESS -1.5 mmol/L (-2.0-3.0); ABG HCO3 23.2 mmol/L (22.0-26.0); ABG OXYGEN SATURATION 96.1 % (95-98); ABG PCO2 (T) 37.1 mmHg (35.0-48.0); ABG PH (T) 7.409 (7.350-7.450); FCOHb 0.3 % (0.5-1.5); FO2Hb 95.8 % (94-100); MINUTE VOLUME 7 L/min; PATIENT TEMPERATURE 35.9; PEEP 5 cm H2O; RESPIRATORY RATE 10 b/min; RESPIRATORY RATE (OBSERVED) 11 b/min; TOTAL HEMOGLOBIN 9.2 G/dl (14.0-18.0)
[2018-11-14 06:15] LABS: ISTAT HGB 9.2 g/dl (14.0-18.0); ISTAT IONIZED CALCIUM 1.07 mmol/L (1.03-1.32); ISTAT K 4.3 mmol/L (3.5-5.1)
--- NOTE | 2018-11-14 06:27 | NUR ---
Problems reprioritized. Patient report given, questions answered & plan of care reviewed with Aaron LYNN.
--- NOTE | 2018-11-14 06:30 | NUR ---
Patient in room CICU 2011. I have received report from operating table assembler and had the opportunity to ask questions and assume patient care.
--- NOTE | 2018-11-14 07:30 | NUR ---
pt is not being cooperative, not opening eyes to name, but shaking head, moves all limbs equally, when asked if in pain, nods head yes, but when asked to open eyes shakes head no. informed patient that trying to establish alertness in order to extubate him this morning so he can breath on his own. pt is becoming aggitated and now shaking head violently from side to side, and attempting to reach up and pull ETT, restraints in place, patient pulling against same, resp therapist present and weaning done, pt passed, but is not calm and shaking fists and banging bed. informed patient that he needs to calm down in order for us to extubate. dr plascencia paged with weaning parameters and order to extubate received. extubated at 805 to 4 l/min via budget report clerk. tolerated process well
[2018-11-14] MEDS: K and/or MAG REPLACEMENT MC SCH (08:00)
[2018-11-14] MEDS: metoprolol tartrate 25mg tablet PO SCH ×2 (08:00→20:02)
[2018-11-14] MEDS: lactobacillus rhamnosus 10,000 MMU CELLS/CAPSULE PO SCH ×2 (09:30→20:02)
[2018-11-14] MEDS: furosemide 40mg tablet PO SCH (09:31)
[2018-11-14] MEDS: magnesium oxide 400mg tablet PO SCH (09:31)
[2018-11-14] MEDS: aspirin 81mg tablet.DR PO SCH (09:31)
[2018-11-14] MEDS: ferrous sulfate 325mg tablet PO SCH (09:31)
[2018-11-14] MEDS: docusate sod 100mg capsule PO SCH ×2 (09:31→20:02)
[2018-11-14] MEDS: gabapentin 300mg capsule PO SCH ×3 (09:31→20:02)
[2018-11-14 09:53] LABS: HEMATOCRIT 24.1 % (42.0-52.0); HEMOGLOBIN 8.1 g/dl (14.0-17.9); MEAN CORPUSCULAR HGB CONC 33.5 g/dL (33.0-36.5); MEAN CORPUSCULAR VOLUME 86.7 FL (78-98); MEAN PLATELET VOLUME 7.2 FL (7.4-10.4); PLATELET COUNT 159 X10'3 (140-440); RED BLOOD COUNT 2.78 X10'6 (4.70-6.10); WHITE BLOOD COUNT 10.9 X10'3 (4.5-11.0)
[2018-11-14] MEDS ORDERED: HYDROmorphone 1 mg/ml syringe IV PRN (10:00)
[2018-11-14] MEDS: multivitamins, therapeutics tablet PO SCH (13:44)
[2018-11-14] MEDS: normal saline 1000ml 1,000 ML IV SCH ×2 (13:51→23:35)
[2018-11-14] MEDS: HYDROcodone/acetaminophen 5mg/325mg tablet PO PRN (14:21)
[2018-11-14 15:51] LABS: HEMATOCRIT 23.2 % (42.0-52.0); HEMOGLOBIN 7.7 g/dl (14.0-17.9); MEAN CORPUSCULAR HEMOGLOBIN 28.9 PG (27.0-31.0); MEAN CORPUSCULAR HGB CONC 33.3 g/dL (33.0-36.5); MEAN CORPUSCULAR VOLUME 86.9 FL (78-98); MEAN PLATELET VOLUME 7.2 FL (7.4-10.4); PLATELET COUNT 169 X10'3 (140-440); RED BLOOD COUNT 2.67 X10'6 (4.70-6.10); RED CELL DISTRIBUTION WIDTH 16.5 % (11.5-14.5); WHITE BLOOD COUNT 11.4 X10'3 (4.5-11.0)
--- NOTE | 2018-11-14 17:42 | NUR ---
163 blood result called to dr plascencia, orders obtained, PIV attempted x3 unsuccessful
--- NOTE | 2018-11-14 18:25 | NUR ---
Patient in room CICU 2011. I have received report from Aaron LYNN and had the opportunity to ask questions and assume patient care. Patient resting in bed, alert/oriented x3. Complaining of pain to back, declining to take pain medication at this time. 1 unit PRBC infusing, will infuse second unit as ordered. BP 136/57 via arterial line, patient saturating at 96% on room air. Wound vac site CDI with good seal noted, surrounding skin hard, edematous, reddened around site. Will continue to monitor patient closely.
--- NOTE | 2018-11-14 19:30 | NUR ---
Patient requesting to eat. Bowel sounds active and normal, patient states he has been passing gas. Informed Bang Rene FLOOR WAXER, states okay to order diet.
[2018-11-14] MEDS: finasteride 5mg tablet PO SCH (20:02)
[2018-11-14] MEDS: atorvastatin 20mg tablet PO SCH (20:02)
[2018-11-14] MEDS: apixaban 5mg tablet PO SCH (20:02)
[2018-11-14 23:06] LABS: HEMOGLOBIN 9.8 g/dl (14.0-17.9); MEAN CORPUSCULAR HEMOGLOBIN 30.8 PG (27.0-31.0); MEAN CORPUSCULAR HGB CONC 34.9 g/dL (33.0-36.5); MEAN CORPUSCULAR VOLUME 88.4 FL (78-98); MEAN PLATELET VOLUME 7.6 FL (7.4-10.4); PLATELET COUNT 158 X10'3 (140-440); RED BLOOD COUNT 3.17 X10'6 (4.70-6.10); RED CELL DISTRIBUTION WIDTH 16.3 % (11.5-14.5); WHITE BLOOD COUNT 10.8 X10'3 (4.5-11.0)
[2018-11-15] VITALS (19 sets, daily range): BP systolic 90–155; BP diastolic 46–93
[2018-11-15] MEDS: HYDROcodone/acetaminophen 5mg/325mg tablet PO PRN ×4 (00:46→20:14)
[2018-11-15] MEDS: piperacillin/tazo 3.375gm/50ml 50 ML IV SCH ×2 (00:49→07:23)
[2018-11-15 05:18] LABS: BASOPHILS # (AUTO) 0.1 X10'3 (0-0.2); BASOPHILS % (AUTO) 1.3 % (0-1); EOSINOPHILS # (AUTO) 0.1 X10'3 (0-0.9); EOSINOPHILS % (AUTO) 1.1 % (0-6); HEMOGLOBIN 10.5 g/dl (14.0-17.9); LYMPHOCYTES # (AUTO) 1.3 X10'3 (1.1-4.8); LYMPHOCYTES % (AUTO) 12.2 % (21-51); MEAN CORPUSCULAR HEMOGLOBIN 30.2 PG (27.0-31.0); MEAN CORPUSCULAR VOLUME 88.7 FL (78-98); MEAN PLATELET VOLUME 7.4 FL (7.4-10.4); MONOCYTES # (AUTO) 1.2 X10'3 (0-0.9); MONOCYTES % (AUTO) 10.9 % (2-12); NEUTROPHILS # (AUTO) 8.2 X10'3 (1.8-7.7); NEUTROPHILS % (AUTO) 74.5 % (42-75); PLATELET COUNT 170 X10'3 (140-440); RED BLOOD COUNT 3.49 X10'6 (4.70-6.10)
[2018-11-15 05:31] LABS: ALBUMIN 2.7 G/DL (3.4-5.0); ANION GAP 8 (8-16); BLOOD UREA NITROGEN 15 MG/DL (7-18); BUN/CREATININE RATIO 11.4 (5.4-32.0); CALCIUM 8.1 MG/DL (8.5-10.1); CHLORIDE 106 MMOL/L (99-107); CREATININE 1.32 MG/DL (0.60-1.10); GLUCOSE 104 MG/DL (70-104); MAGNESIUM 1.7 MG/DL (1.5-2.4); POTASSIUM 3.8 MMOL/L (3.5-5.1); SODIUM 139 MMOL/L (135-145); TOTAL CARBON DIOXIDE 24.6 MMOL/L (24-32); eGFR 52 ML/MIN
[2018-11-15] MEDS: LORazepam 0.5 MG tablet PO PRN (05:57)
--- NOTE | 2018-11-15 06:27 | NUR ---
Problems reprioritized. Patient report given, questions answered & plan of care reviewed with Aaron LYNN.
--- NOTE | 2018-11-15 06:30 | NUR ---
Patient in room CICU 2011. I have received report from shift production associate RN and had the opportunity to ask questions and assume patient care.
[2018-11-15] MEDS: aspirin 81mg tablet.DR PO SCH (07:23)
[2018-11-15] MEDS: ferrous sulfate 325mg tablet PO SCH (07:23)
[2018-11-15] MEDS: lactobacillus rhamnosus 10,000 MMU CELLS/CAPSULE PO SCH ×2 (07:23→20:00)
[2018-11-15] MEDS: apixaban 5mg tablet PO SCH ×2 (07:23→20:12)
[2018-11-15] MEDS: furosemide 40mg tablet PO SCH (07:24)
[2018-11-15] MEDS: docusate sod 100mg capsule PO SCH ×2 (07:24→20:00)
[2018-11-15] MEDS: multivitamins, therapeutics tablet PO SCH (07:24)
[2018-11-15] MEDS: magnesium oxide 400mg tablet PO SCH (07:25)
[2018-11-15] MEDS: K and/or MAG REPLACEMENT MC SCH (08:00)
[2018-11-15] MEDS: gabapentin 300mg capsule PO SCH ×2 (08:00→20:15)
[2018-11-15] MEDS: metoprolol tartrate 25mg tablet PO SCH ×2 (08:00→19:42)
--- NOTE | 2018-11-15 10:00 | NUR ---
physical therapy working with patient, ambulated approx 10 feet, sat on commode for BM pt is still slightly confused and inappropriate, states he was seeing dust bunnies floating in the air, has random nonsensical questions and statements that make no sense. [address] changed by wound care nurse, tolerated procedure well, co of pain and medicated for same, patient is not able to give a value to his pain number accurately, states that he is at 9000 for pain, when asked to use the pain scale from 0-10, he is not able to, [place] [id number]
[2018-11-15] MEDS: normal saline 1000ml 1,000 ML IV SCH ×2 (12:49→19:35)
[2018-11-15] MEDS: ondansetron/PF 4mg/2ml inj IV PRN (13:03)
[2018-11-15] MEDS: morphine 2 MG/ML inj. syringe IV PRN (13:04)
--- NOTE | 2018-11-15 13:30 | NUR ---
assisted up to chair for lunch, tolerated activity well, sat in chair for 45 minutes, then assisted back to bed with two person transfer. continues to havee slight confusion, and inappropriate responses, and statements. 1445 Dr plascencia, at bedside and updated, orders to transfer.
--- NOTE | 2018-11-15 15:39 | NUR ---
Extended PIV inserted to the right upper arm cephalic vein x 1 attempt using ultrasound. Stewart howe. Addendum: 11/15/18 at 1540 by Yessenia Rosado RN Amended: Links added.
--- NOTE | 2018-11-15 15:46 | NUR ---
WOUND VAC EDUCATION PROVIDED BY WOUND CARE 1. Patient instructed to call the Wound Center or their Home Health Agency immediately if: * They notice a change in the color or amount of the fluid in the canister. * Their wound looks more red than usual or has a foul smell. * The skin around their wound looks reddened or irritated. * The dressing feels loose or appears to be loose. * They experience any increase or changes in their pain. * The alarm will not turn off. 2. Patient instructed that they should not be disconnected from suction for more than 2 hours at a time. * If they are not able to get the suction back on, they need to remove the dressing and take all of the foam out of the wound. * Then moisten sterile gauze with normal saline and place on/in the wound. * Change the dressing once a day until arrangements have been made to replace the wound vac dressing. 3. Patient instructed to turn the wound vac machine OFF and call 911 or go to the ED immediately if their canister fills rapidly with blood. 4. If any of these occur while in the hospital tell a nurse immediately. Addendum: 11/15/18 at 1619 by Amarilis Guerra RN Amended: Links added.
--- NOTE | 2018-11-15 16:09 | NUR ---
RECOMMEND: 1. Daily bathing with no rinse skin cleanser. 2. Cream/Lotion to be applied to skin after bathing. 3. Nilda care Q shift and prn soiling followed by Barrier Cream prn redness. 4. Turn patient Q 1-2 hrs and reposition with pillows. 5. Float heels to offload pressure. 6. Hydrophylic foam dressing to sacrum for skin protection. Change Q3 days and prn soiling 7: Wound VAC to left groin wound. Settings 75mmHg, low, continuous. Routine dressing changes 8. Dietary consult Addendum: 11/15/18 at 1619 by Amarilis Guerra RN Amended: Links added.
[2018-11-15] MEDS ORDERED: potassium Cl 40MEQ/NS 500ml 500 ML IV PRN ×2 (16:45)
[2018-11-15] MEDS ORDERED: magnesium 2GM in 50ml NS 50 ML IV PRN (16:45)
[2018-11-15] MEDS ORDERED: potassium Cl 20 mEq SR tablet PO PRN ×2 (16:45)
[2018-11-15] MEDS ORDERED: potassium Cl 10 mEq/100mL bag IV ONE (17:00)
[2018-11-15] MEDS ORDERED: Potassium Cl 40 MEQ in NS 500 ML IV ONE (17:15)
--- NOTE | 2018-11-15 17:50 | NUR ---
report called to RN on surgical floor, pt transported via bed and telemetry monitoring with all belongings, at 1830
--- NOTE | 2018-11-15 18:05 | NUR ---
Patient in room CICU 2011. I have received report from iris salinas and had the opportunity to ask questions and assume patient care. Awaiting patient arrival to room 353
--- NOTE | 2018-11-15 18:14 | NUR ---
Problems reprioritized. Patient report given, questions answered & plan of care reviewed with shane ferrara. Addendum: 11/15/18 at 1814 by Rodolfo Craft RN Problems reprioritized. Patient report given, questions answered & plan of care reviewed with SHANE Solis.
[2018-11-15] MEDS ORDERED: VANCOMYCIN LEVEL IV ONE (19:30)
[2018-11-15] MEDS: atorvastatin 20mg tablet PO SCH (20:14)
[2018-11-15] MEDS: finasteride 5mg tablet PO SCH (20:15)
[2018-11-16] VITALS: BP 138/61
[2018-11-16] MEDS: morphine 2 MG/ML inj. syringe IV PRN ×2 (03:40→22:26)
[2018-11-16] MEDS: HYDROcodone/acetaminophen 5mg/325mg tablet PO PRN ×3 (03:42→20:33)
[2018-11-16 05:28] LABS: BASOPHILS # (AUTO) 0.1 X10'3 (0-0.2); BASOPHILS % (AUTO) 0.5 % (0-1); EOSINOPHILS # (AUTO) 0.2 X10'3 (0-0.9); HEMATOCRIT 27.2 % (42.0-52.0); HEMOGLOBIN 9.4 g/dl (14.0-17.9); LYMPHOCYTES # (AUTO) 0.7 X10'3 (1.1-4.8); MEAN CORPUSCULAR HEMOGLOBIN 30.4 PG (27.0-31.0); MEAN CORPUSCULAR HGB CONC 34.4 g/dL (33.0-36.5); MEAN CORPUSCULAR VOLUME 88.4 FL (78-98); MEAN PLATELET VOLUME 6.9 FL (7.4-10.4); MONOCYTES # (AUTO) 1.4 X10'3 (0-0.9); NEUTROPHILS # (AUTO) 9.5 X10'3 (1.8-7.7); NEUTROPHILS % (AUTO) 79.5 % (42-75); PLATELET COUNT 169 X10'3 (140-440); RED BLOOD COUNT 3.08 X10'6 (4.70-6.10); RED CELL DISTRIBUTION WIDTH 16.4 % (11.5-14.5); WHITE BLOOD COUNT 11.9 X10'3 (4.5-11.0)
[2018-11-16] MEDS: ondansetron/PF 4mg/2ml inj IV PRN ×2 (05:41→12:15)
[2018-11-16 05:46] LABS: ALBUMIN 2.2 G/DL (3.4-5.0); ANION GAP 10 (8-16); BLOOD UREA NITROGEN 13 MG/DL (7-18); CALCIUM 8.4 MG/DL (8.5-10.1); CHLORIDE 107 MMOL/L (99-107); CREATININE 1.18 MG/DL (0.60-1.10); GLUCOSE 106 MG/DL (70-104); POTASSIUM 3.8 MMOL/L (3.5-5.1); SODIUM 140 MMOL/L (135-145); TOTAL CARBON DIOXIDE 23.4 MMOL/L (24-32); eGFR 59 ML/MIN
[2018-11-16] MEDS: normal saline 1000ml 1,000 ML IV SCH ×2 (05:59→07:49)
--- NOTE | 2018-11-16 06:30 | NUR ---
Patient in room [facility] 355. I have received report from Irma and had the opportunity to ask questions and assume patient care. Addendum: 11/16/18 at 1123 by Renu Alexander RN Amended: Links added.
--- NOTE | 2018-11-16 06:49 | NUR ---
Problems reprioritized. Patient report given, questions answered & plan of care reviewed with SHANE Sears. Addendum: 11/16/18 at 0649 by Irma Mendoza RN Amended: Links added.
[2018-11-16 07:00] VITALS: BP 88/53
[2018-11-16] MEDS: metoprolol tartrate 25mg tablet PO SCH ×2 (08:00→20:34)
[2018-11-16] MEDS: furosemide 40mg tablet PO SCH (08:00)
[2018-11-16] MEDS: K and/or MAG REPLACEMENT MC SCH (08:00)
[2018-11-16] MEDS: lactobacillus rhamnosus 10,000 MMU CELLS/CAPSULE PO SCH ×2 (09:06→20:33)
[2018-11-16] MEDS: aspirin 81mg tablet.DR PO SCH (09:06)
[2018-11-16] MEDS: apixaban 5mg tablet PO SCH ×2 (09:07→20:33)
[2018-11-16] MEDS: docusate sod 100mg capsule PO SCH ×2 (09:07→20:33)
[2018-11-16] MEDS: gabapentin 300mg capsule PO SCH ×2 (09:07→20:33)
[2018-11-16] MEDS: ferrous sulfate 325mg tablet PO SCH (09:07)
[2018-11-16] MEDS: multivitamins, therapeutics tablet PO SCH (09:08)
[2018-11-16] MEDS: magnesium oxide 400mg tablet PO SCH (09:08)
--- NOTE | 2018-11-16 10:51 | NUR ---
Wound consult re: surgical wounds with wound VAC. Per physical assessment pt with wound to left thigh, groin, abdomen, and leg. Per physical assessment pt currently very confused and A/O x1, protein ed not appropriate at this time. Pt currently on a heart healthy diet with documented 100% PO intake at breakfast this morning. LBM 11/15. Will continue to follow. Patient is s/p exploration of left groin, ileofemoral bypass graft with wound VAC placed to left mckenna POD #2. Patient was extubated this morning. Still NPO post op. Will continue to follow. Recommendations: 1) Continue with heart healthy diet 2) Monitor need for ONS 3) Protein education once appropriate prior to d/c 4) Wt per rx Addendum: 11/16/18 at [address] Amended: Links added.
[2018-11-16 11:00] VITALS: BP 146/78
--- NOTE | 2018-11-16 18:38 | NUR ---
Problems reprioritized. Patient report given, questions answered & plan of care reviewed with Torey. Addendum: 11/16/18 at 1838 by Renu Alexander RN Amended: Links added.
--- NOTE | 2018-11-16 18:39 | NUR ---
Patient in room [facility] 355. I have received report from SHANE Sears and had the opportunity to ask questions and assume patient care.
[2018-11-16 20:00] VITALS: BP 104/65
[2018-11-16] MEDS: finasteride 5mg tablet PO SCH (20:33)
[2018-11-16] MEDS: atorvastatin 20mg tablet PO SCH (20:33)
[2018-11-16] MEDS ORDERED: VANCOMYCIN LEVEL IV ONE (21:30)
[2018-11-17] VITALS: BP 93/54
[2018-11-17] MEDS: K and/or MAG REPLACEMENT MC SCH (06:51)
[2018-11-17 07:00] VITALS: BP 110/66
[2018-11-17] MEDS: multivitamins, therapeutics tablet PO SCH (09:35)
[2018-11-17] MEDS: docusate sod 100mg capsule PO SCH ×2 (09:35→21:50)
[2018-11-17] MEDS: lactobacillus rhamnosus 10,000 MMU CELLS/CAPSULE PO SCH ×2 (09:35→21:48)
[2018-11-17] MEDS: apixaban 5mg tablet PO SCH ×2 (09:36→21:53)
[2018-11-17] MEDS: aspirin 81mg tablet.DR PO SCH (09:37)
[2018-11-17] MEDS: HYDROcodone/acetaminophen 5mg/325mg tablet PO PRN (09:37)
[2018-11-17] MEDS: furosemide 40mg tablet PO SCH (09:37)
[2018-11-17] MEDS: ferrous sulfate 325mg tablet PO SCH (09:38)
[2018-11-17] MEDS: metoprolol tartrate 25mg tablet PO SCH ×2 (09:38→21:47)
[2018-11-17] MEDS: gabapentin 300mg capsule PO SCH ×2 (09:38→21:49)
[2018-11-17] MEDS: magnesium oxide 400mg tablet PO SCH (09:38)
[2018-11-17] MEDS: vancomycin/NS 1 GM ADD-VANTAGE 250 ML IV SCH ×2 (09:41→21:55)
[2018-11-17 10:20] LABS: BASOPHILS # (AUTO) 0.1 X10'3 (0-0.2); BASOPHILS % (AUTO) 0.4 % (0-1); EOSINOPHILS # (AUTO) 0.4 X10'3 (0-0.9); HEMOGLOBIN 9.1 g/dl (14.0-17.9); MEAN CORPUSCULAR HEMOGLOBIN 29.7 PG (27.0-31.0); MONOCYTES # (AUTO) 1.2 X10'3 (0-0.9); PLATELET COUNT 187 X10'3 (140-440); RED CELL DISTRIBUTION WIDTH 16.4 % (11.5-14.5); WHITE BLOOD COUNT 12.9 X10'3 (4.5-11.0)
[2018-11-17 10:23] LABS: EOSINOPHILS % (AUTO) 3.4 % (0-6); HEMATOCRIT 27.5 % (42.0-52.0); LYMPHOCYTES # (AUTO) 0.9 X10'3 (1.1-4.8); LYMPHOCYTES % (AUTO) 6.6 % (21-51); MEAN CORPUSCULAR HGB CONC 33.2 g/dL (33.0-36.5); MEAN CORPUSCULAR VOLUME 89.4 FL (78-98); MEAN PLATELET VOLUME 7.1 FL (7.4-10.4); NEUTROPHILS # (AUTO) 10.4 X10'3 (1.8-7.7); NEUTROPHILS % (AUTO) 80.6 % (42-75); RED BLOOD COUNT 3.08 X10'6 (4.70-6.10)
[2018-11-17 10:36] LABS: ANION GAP 7 (8-16); BLOOD UREA NITROGEN 15 MG/DL (7-18); BUN/CREATININE RATIO 12.7 (5.4-32.0); CALCIUM 8.3 MG/DL (8.5-10.1); CHLORIDE 105 MMOL/L (99-107); CREATININE 1.18 MG/DL (0.60-1.10); GLUCOSE 122 MG/DL (70-104); POTASSIUM 3.9 MMOL/L (3.5-5.1); SODIUM 138 MMOL/L (135-145); TOTAL CARBON DIOXIDE 26.5 MMOL/L (24-32); eGFR 59 ML/MIN
--- NOTE | 2018-11-17 11:30 | NUR ---
Message left for Kolby re: Wound Vac change today. Awaiting call back.
[2018-11-17 12:00] VITALS: BP 126/48
--- NOTE | 2018-11-17 18:38 | NUR ---
Problems reprioritized. Patient report given, questions answered & plan of care reviewed with Torey. Addendum: 11/17/18 at 1838 by Renu Alexander RN Amended: Links added.
--- NOTE | 2018-11-17 18:39 | NUR ---
Patient in room [facility] 355. I have received report from SHANE Sears and had the opportunity to ask questions and assume patient care.
[2018-11-17 20:00] VITALS: BP 155/75
[2018-11-17] MEDS: atorvastatin 20mg tablet PO SCH (21:48)
[2018-11-17] MEDS: finasteride 5mg tablet PO SCH (21:48)
[2018-11-17] MEDS: HYDROcodone/acetaminophen 10/325mg tab PO PRN (21:50)
[2018-11-18] VITALS: BP 120/52
[2018-11-18] MEDS: LORazepam 0.5 MG tablet PO PRN ×2 (00:53→15:39)
[2018-11-18] MEDS: HYDROcodone/acetaminophen 10/325mg tab PO PRN ×3 (04:53→20:38)
[2018-11-18 06:16] LABS: BASOPHILS # (AUTO) 0.1 X10'3 (0-0.2); EOSINOPHILS # (AUTO) 0.6 X10'3 (0-0.9); EOSINOPHILS % (AUTO) 6.2 % (0-6); HEMATOCRIT 28.3 % (42.0-52.0); HEMOGLOBIN 9.4 g/dl (14.0-17.9); LYMPHOCYTES # (AUTO) 1.2 X10'3 (1.1-4.8); LYMPHOCYTES % (AUTO) 11.7 % (21-51); MEAN CORPUSCULAR HEMOGLOBIN 29.8 PG (27.0-31.0); MEAN CORPUSCULAR HGB CONC 33.1 g/dL (33.0-36.5); MEAN CORPUSCULAR VOLUME 89.9 FL (78-98); MEAN PLATELET VOLUME 7.5 FL (7.4-10.4); MONOCYTES # (AUTO) 0.9 X10'3 (0-0.9); MONOCYTES % (AUTO) 8.3 % (2-12); NEUTROPHILS # (AUTO) 7.6 X10'3 (1.8-7.7); NEUTROPHILS % (AUTO) 72.8 % (42-75); PLATELET COUNT 214 X10'3 (140-440); RED BLOOD COUNT 3.15 X10'6 (4.70-6.10); RED CELL DISTRIBUTION WIDTH 16.8 % (11.5-14.5); WHITE BLOOD COUNT 10.5 X10'3 (4.5-11.0)
--- NOTE | 2018-11-18 06:18 | NUR ---
Problems reprioritized. Patient report given, questions answered & plan of care reviewed with SHANE Uribe.
--- NOTE | 2018-11-18 06:32 | NUR ---
Patient in room [facility] 355. I have received report from Torey LYNN and had the opportunity to ask questions and assume patient care.
--- NOTE | 2018-11-18 06:41 | NUR ---
Olga'd report from circuit board drafter nurse
[2018-11-18 06:47] LABS: ALBUMIN 2.1 G/DL (3.4-5.0); ANION GAP 10 (8-16); BLOOD UREA NITROGEN 22 MG/DL (7-18); BUN/CREATININE RATIO 15.1 (5.4-32.0); CALCIUM 8.7 MG/DL (8.5-10.1); CHLORIDE 104 MMOL/L (99-107); CREATININE 1.46 MG/DL (0.60-1.10); GLUCOSE 93 MG/DL (70-104); POTASSIUM 3.6 MMOL/L (3.5-5.1); SODIUM 139 MMOL/L (135-145); TOTAL CARBON DIOXIDE 24.9 MMOL/L (24-32); eGFR 46 ML/MIN
[2018-11-18 07:33] VITALS: BP 133/39
[2018-11-18] MEDS: K and/or MAG REPLACEMENT MC SCH (07:56)
[2018-11-18] MEDS ORDERED: furosemide 40mg/4ml inj IV SCH (08:00)
[2018-11-18] MEDS: lactobacillus rhamnosus 10,000 MMU CELLS/CAPSULE PO SCH ×2 (08:18→20:24)
[2018-11-18] MEDS: docusate sod 100mg capsule PO SCH ×2 (08:18→20:24)
[2018-11-18] MEDS: metoprolol tartrate 25mg tablet PO SCH ×2 (08:18→20:26)
[2018-11-18] MEDS: ferrous sulfate 325mg tablet PO SCH (08:18)
[2018-11-18] MEDS: multivitamins, therapeutics tablet PO SCH (08:18)
[2018-11-18] MEDS: magnesium oxide 400mg tablet PO SCH (08:18)
[2018-11-18] MEDS: gabapentin 300mg capsule PO SCH ×2 (08:18→20:26)
[2018-11-18] MEDS: apixaban 5mg tablet PO SCH ×2 (08:19→20:25)
[2018-11-18] MEDS: aspirin 81mg tablet.DR PO SCH (08:19)
[2018-11-18] MEDS: vancomycin/NS 1 GM ADD-VANTAGE 250 ML IV SCH (10:00)
[2018-11-18 12:05] VITALS: BP 112/43
[2018-11-18] MEDS: linezolid 600mg tablet PO SCH ×2 (12:23→20:26)
--- NOTE | 2018-11-18 12:30 | NUR ---
WOUND VAC EDUCATION PROVIDED BY WOUND CARE 1. Patient instructed to call the Wound Center or their Home Health Agency immediately if: * They notice a change in the color or amount of the fluid in the canister. * Their wound looks more red than usual or has a foul smell. * The skin around their wound looks reddened or irritated. * The dressing feels loose or appears to be loose. * They experience any increase or changes in their pain. * The alarm will not turn off. 2. Patient instructed that they should not be disconnected from suction for more than 2 hours at a time. * If they are not able to get the suction back on, they need to remove the dressing and take all of the foam out of the wound. * Then moisten sterile gauze with normal saline and place on/in the wound. * Change the dressing once a day until arrangements have been made to replace the wound vac dressing. 3. Patient instructed to turn the wound vac machine OFF and call 911 or go to the ED immediately if their canister fills rapidly with blood. 4. If any of these occur while in the hospital tell a nurse immediately. Addendum: 11/18/18 at 1231 by Viri Mei RN Amended: Links added.
--- NOTE | 2018-11-18 14:23 | NUR ---
Reassessment: Noted that patient's weight has changed -6.9 kg, likely no wt loss as wt changes are from pt stated wt to bed scale. Pt continues on heart healthy diet with documented 75-100% PO intake likely meeting nutrient needs. Pt now receiving Zyvox for tx per med list, pt will need low tyramine nutrition therapy education once appropriate. LBM 11/16. Will continue to follow. Recommendations: 1) Continue with heart healthy diet 2) Monitor need for ONS 3) Protein and Zyvox education once appropriate prior to d/c 4) Wt per rx Addendum: 11/18/18 at [address] Amended: Links added.
[2018-11-18 18:00] VITALS: BP 147/78
--- NOTE | 2018-11-18 18:30 | NUR ---
Problems reprioritized. Patient report given, questions answered & plan of care reviewed with Pao LYNN.
--- NOTE | 2018-11-18 18:30 | NUR ---
Patient in room [facility] 355. I have received report from Abby LYNN and had the opportunity to ask questions and assume patient care.
[2018-11-18] MEDS: atorvastatin 20mg tablet PO SCH (20:27)
[2018-11-18] MEDS: finasteride 5mg tablet PO SCH (20:27)
[2018-11-18] MEDS ORDERED: VANCOMYCIN LEVEL IV ONE (21:30)
[2018-11-19] VITALS: BP 142/86
[2018-11-19] MEDS: HYDROcodone/acetaminophen 10/325mg tab PO PRN ×3 (01:32→18:56)
[2018-11-19 04:17] LABS: ANION GAP 7 (8-16); BASOPHILS # (AUTO) 0.1 X10'3 (0-0.2); BASOPHILS % (AUTO) 1.3 % (0-1); BLOOD UREA NITROGEN 25 MG/DL (7-18); BUN/CREATININE RATIO 16.2 (5.4-32.0); CALCIUM 8.8 MG/DL (8.5-10.1); CHLORIDE 102 MMOL/L (99-107); CREATININE 1.54 MG/DL (0.60-1.10); EOSINOPHILS # (AUTO) 0.8 X10'3 (0-0.9); EOSINOPHILS % (AUTO) 8.6 % (0-6); GLUCOSE 101 MG/DL (70-104); HEMATOCRIT 27.3 % (42.0-52.0); HEMOGLOBIN 9.1 g/dl (14.0-17.9); LYMPHOCYTES # (AUTO) 1.1 X10'3 (1.1-4.8); LYMPHOCYTES % (AUTO) 12.5 % (21-51); MEAN CORPUSCULAR HEMOGLOBIN 29.7 PG (27.0-31.0); MEAN CORPUSCULAR HGB CONC 33.5 g/dL (33.0-36.5); MEAN CORPUSCULAR VOLUME 88.8 FL (78-98); MEAN PLATELET VOLUME 7.5 FL (7.4-10.4); MONOCYTES % (AUTO) 11.7 % (2-12); NEUTROPHILS # (AUTO) 5.8 X10'3 (1.8-7.7); NEUTROPHILS % (AUTO) 65.9 % (42-75); PLATELET COUNT 254 X10'3 (140-440); RED BLOOD COUNT 3.08 X10'6 (4.70-6.10); RED CELL DISTRIBUTION WIDTH 16.7 % (11.5-14.5); SODIUM 136 MMOL/L (135-145); TOTAL CARBON DIOXIDE 27.5 MMOL/L (24-32); WHITE BLOOD COUNT 8.8 X10'3 (4.5-11.0); eGFR 43 ML/MIN
--- NOTE | 2018-11-19 06:24 | NUR ---
Problems reprioritized. Patient report given, questions answered & plan of care reviewed with Allison LYNN. pt resting. no signs of distress. iv intact. wound vac intact.
[2018-11-19 07:47] VITALS: BP 132/65
[2018-11-19] MEDS: K and/or MAG REPLACEMENT MC SCH (08:00)
[2018-11-19] MEDS: apixaban 5mg tablet PO SCH ×2 (09:47→20:47)
[2018-11-19] MEDS: magnesium oxide 400mg tablet PO SCH (09:47)
[2018-11-19] MEDS: gabapentin 300mg capsule PO SCH ×2 (09:47→20:47)
[2018-11-19] MEDS: aspirin 81mg tablet.DR PO SCH (09:47)
[2018-11-19] MEDS: multivitamins, therapeutics tablet PO SCH (09:47)
[2018-11-19] MEDS: docusate sod 100mg capsule PO SCH ×2 (09:47→20:47)
[2018-11-19] MEDS: ferrous sulfate 325mg tablet PO SCH (09:48)
[2018-11-19] MEDS: metoprolol tartrate 25mg tablet PO SCH ×2 (09:48→20:47)
[2018-11-19] MEDS: lactobacillus rhamnosus 10,000 MMU CELLS/CAPSULE PO SCH ×2 (09:48→20:47)
[2018-11-19] MEDS: furosemide 40mg tablet PO SCH (09:49)
[2018-11-19] MEDS: LORazepam 0.5 MG tablet PO PRN (10:01)
[2018-11-19] MEDS: linezolid 600mg tablet PO SCH ×2 (10:01→20:47)
--- NOTE | 2018-11-19 10:42 | NUR ---
PAGER ID: [phone] MESSAGE: [id number] Tony Gloriatonja Increased edema R foot, moderate draining from L leg wound, pt. taking 40mg Lasix PO daily, poor kidney function. Allison [phone]
[2018-11-19 12:16] VITALS: BP 111/52
--- NOTE | 2018-11-19 14:01 | NUR ---
Dr. Melendez requested pt ambulate w/ PTx this afternoon. PTx notified.
--- NOTE | 2018-11-19 18:25 | NUR ---
Received report from Allison LYNN pt is awake on RA eating dinner, in no apparent distress, tabs alarm connected to gown, call light and items of freq use within reach.
--- NOTE | 2018-11-19 18:31 | NUR ---
PT. IN BED EATING. NO COMPLAINTS AT THIS TIME. WOUND ON AND WORKING AT 75. DRESSING CDI. CALL LIGHT AND FREQUENTLY USED ITEMS WITHIN PT REACH. GAVE REPORT TO RADHA LYNN.
[2018-11-19 19:30] VITALS: BP 104/44
[2018-11-19] MEDS: finasteride 5mg tablet PO SCH (20:46)
[2018-11-19] MEDS: atorvastatin 20mg tablet PO SCH (20:47)
[2018-11-20 00:10] VITALS: BP 107/60
[2018-11-20] MEDS: LORazepam 0.5 MG tablet PO PRN (02:23)
[2018-11-20 06:28] LABS: BASOPHILS % (AUTO) 0.3 % (0-1); EOSINOPHILS # (AUTO) 0.6 X10'3 (0-0.9); EOSINOPHILS % (AUTO) 4.8 % (0-6); HEMOGLOBIN 9.2 g/dl (14.0-17.9); LYMPHOCYTES % (AUTO) 8.7 % (21-51); MEAN CORPUSCULAR HEMOGLOBIN 28.9 PG (27.0-31.0); MEAN CORPUSCULAR HGB CONC 32.8 g/dL (33.0-36.5); MEAN CORPUSCULAR VOLUME 88.2 FL (78-98); MEAN PLATELET VOLUME 7.8 FL (7.4-10.4); MONOCYTES # (AUTO) 1.2 X10'3 (0-0.9); MONOCYTES % (AUTO) 10.3 % (2-12); NEUTROPHILS % (AUTO) 75.9 % (42-75); PLATELET COUNT 280 X10'3 (140-440); RED BLOOD COUNT 3.17 X10'6 (4.70-6.10); RED CELL DISTRIBUTION WIDTH 16.4 % (11.5-14.5); WHITE BLOOD COUNT 11.8 X10'3 (4.5-11.0)
--- NOTE | 2018-11-20 06:32 | NUR ---
Gave report to Stephania LYNN pt is resting on RA, in no apparent distress, call light and items of freq use within reach.
--- NOTE | 2018-11-20 07:05 | NUR ---
Patient in room [facility] 355. I have received report from Emani LYNN and had the opportunity to ask questions and assume patient care.
[2018-11-20 07:25] VITALS: BP 139/90
[2018-11-20] MEDS: K and/or MAG REPLACEMENT MC SCH (08:00)
[2018-11-20 08:24] LABS: ALBUMIN 2.1 G/DL (3.4-5.0); ANION GAP 10 (8-16); BLOOD UREA NITROGEN 23 MG/DL (7-18); BUN/CREATININE RATIO 14.3 (5.4-32.0); CALCIUM 9.1 MG/DL (8.5-10.1); CHLORIDE 101 MMOL/L (99-107); CREATININE 1.61 MG/DL (0.60-1.10); GLUCOSE 107 MG/DL (70-104); POTASSIUM 4.1 MMOL/L (3.5-5.1); SODIUM 137 MMOL/L (135-145); TOTAL CARBON DIOXIDE 25.8 MMOL/L (24-32); eGFR 41 ML/MIN
[2018-11-20] MEDS: furosemide 40mg tablet PO SCH (09:52)
[2018-11-20] MEDS: lactobacillus rhamnosus 10,000 MMU CELLS/CAPSULE PO SCH ×2 (09:52→20:10)
[2018-11-20] MEDS: linezolid 600mg tablet PO SCH ×2 (09:52→20:09)
[2018-11-20] MEDS: multivitamins, therapeutics tablet PO SCH (09:52)
[2018-11-20] MEDS: gabapentin 300mg capsule PO SCH ×2 (09:52→20:09)
[2018-11-20] MEDS: magnesium oxide 400mg tablet PO SCH (09:52)
[2018-11-20] MEDS: aspirin 81mg tablet.DR PO SCH (09:53)
[2018-11-20] MEDS: metoprolol tartrate 25mg tablet PO SCH ×2 (09:53→20:08)
[2018-11-20] MEDS: apixaban 5mg tablet PO SCH ×2 (09:53→20:11)
[2018-11-20] MEDS: docusate sod 100mg capsule PO SCH ×2 (09:54→20:08)
[2018-11-20] MEDS: ferrous sulfate 325mg tablet PO SCH (09:54)
[2018-11-20 11:00] VITALS: BP 129/48
--- NOTE | 2018-11-20 18:30 | NUR ---
Patient in room [facility] 355. I have received report from Stephania LYNN and had the opportunity to ask questions and assume patient care.
--- NOTE | 2018-11-20 18:35 | NUR ---
Problems reprioritized. Patient report given, questions answered & plan of care reviewed with May LYNN.
[2018-11-20 20:00] VITALS: BP 109/51
[2018-11-20] MEDS: finasteride 5mg tablet PO SCH (20:08)
[2018-11-20] MEDS: HYDROcodone/acetaminophen 10/325mg tab PO PRN (20:10)
[2018-11-20] MEDS: atorvastatin 20mg tablet PO SCH (20:10)
[2018-11-21] VITALS: BP 128/50
[2018-11-21 06:01] LABS: BASOPHILS # (AUTO) 0.1 X10'3 (0-0.2); BASOPHILS % (AUTO) 0.5 % (0-1); EOSINOPHILS # (AUTO) 0.5 X10'3 (0-0.9); EOSINOPHILS % (AUTO) 3.5 % (0-6); HEMATOCRIT 28.5 % (42.0-52.0); HEMOGLOBIN 9.3 g/dl (14.0-17.9); LYMPHOCYTES # (AUTO) 1.1 X10'3 (1.1-4.8); LYMPHOCYTES % (AUTO) 8.5 % (21-51); MEAN CORPUSCULAR HEMOGLOBIN 29.1 PG (27.0-31.0); MEAN CORPUSCULAR HGB CONC 32.7 g/dL (33.0-36.5); MEAN CORPUSCULAR VOLUME 89.2 FL (78-98); MEAN PLATELET VOLUME 7.2 FL (7.4-10.4); MONOCYTES # (AUTO) 1.2 X10'3 (0-0.9); MONOCYTES % (AUTO) 8.6 % (2-12); NEUTROPHILS # (AUTO) 10.6 X10'3 (1.8-7.7); NEUTROPHILS % (AUTO) 78.9 % (42-75); PLATELET COUNT 317 X10'3 (140-440); RED CELL DISTRIBUTION WIDTH 16.2 % (11.5-14.5); WHITE BLOOD COUNT 13.4 X10'3 (4.5-11.0)
[2018-11-21 06:18] LABS: ANION GAP 8 (8-16); BLOOD UREA NITROGEN 21 MG/DL (7-18); BUN/CREATININE RATIO 13.4 (5.4-32.0); CALCIUM 9.2 MG/DL (8.5-10.1); CHLORIDE 100 MMOL/L (99-107); CREATININE 1.57 MG/DL (0.60-1.10); GLUCOSE 107 MG/DL (70-104); POTASSIUM 3.9 MMOL/L (3.5-5.1); SODIUM 136 MMOL/L (135-145); TOTAL CARBON DIOXIDE 28.4 MMOL/L (24-32); eGFR 43 ML/MIN
--- NOTE | 2018-11-21 06:25 | NUR ---
Patient in room [facility] 355. I have received report from Rachel LYNN and had the opportunity to ask questions and assume patient care.
[2018-11-21 06:30] VITALS: BP 104/87
--- NOTE | 2018-11-21 06:35 | NUR ---
Patient in room [facility] 355. I have received report from SHANE Olvera and had the opportunity to ask questions and assume patient care.
--- NOTE | 2018-11-21 06:49 | NUR ---
Problems reprioritized. Patient report given, questions answered & plan of care reviewed with Rachel RN.
[2018-11-21] MEDS: K and/or MAG REPLACEMENT MC SCH (07:07)
[2018-11-21] MEDS: docusate sod 100mg capsule PO SCH (07:52)
[2018-11-21] MEDS: aspirin 81mg tablet.DR PO SCH (07:55)
[2018-11-21] MEDS: lactobacillus rhamnosus 10,000 MMU CELLS/CAPSULE PO SCH (07:55)
[2018-11-21] MEDS: ferrous sulfate 325mg tablet PO SCH (07:56)
[2018-11-21] MEDS: apixaban 5mg tablet PO SCH (07:56)
[2018-11-21] MEDS: furosemide 40mg tablet PO SCH (07:57)
[2018-11-21] MEDS: magnesium oxide 400mg tablet PO SCH (08:05)
[2018-11-21] MEDS: metoprolol tartrate 25mg tablet PO SCH (08:05)
[2018-11-21] MEDS: gabapentin 300mg capsule PO SCH (08:06)
[2018-11-21] MEDS: multivitamins, therapeutics tablet PO SCH (08:06)
[2018-11-21] MEDS: linezolid 600mg tablet PO SCH (08:06)
[2018-11-21 11:00] VITALS: BP 128/58
[2018-11-21 11:44] VITALS: BP 128/58
--- NOTE | 2018-11-21 11:56 | NUR ---
Student documentation: I have reviewed and agree with all interventions, assessments performed and documented by Jordy, vice president of nursing.
--- NOTE | 2018-11-21 11:57 | NUR ---
Student Medication Administration: For this medication-pass time frame, all medication were reviewed, dispensed, administered and documented per hospital policy by ramiro Spence student.
--- NOTE | 2018-11-21 12:00 | NUR ---
Patient in room [facility] 355. I have received report from Jordy Student Nurse and had the opportunity to ask questions and assume patient care.
--- NOTE | 2018-11-21 12:07 | NUR ---
Problems reprioritized. Patient report given, questions answered & plan of care reviewed with David, Seed Buyer.
[2018-11-21] MEDS ORDERED: ASPI-1071 PO (14:20)
[2018-11-21] MEDS ORDERED: LINE600T32 PO (14:20)
--- NOTE | 2018-11-21 15:27 | NUR ---
Student documentation: I have reviewed and agree with all interventions, assessments performed and documented by David, student nurse.
--- NOTE | 2018-11-21 16:33 | NUR ---
zyvox consult: Pt started on zyvox and seen by RD for written/verbal zyvox/high protein ed w/ RD contact information provided. Pt reports unable to read r/t macular degeneration but able to read handouts as well. Pt PO 100% meals meeting needs. LBM 11/20. No further nutrition concerns at this time. Recommendations: 1) Continue with heart healthy diet 2) routine bowel care 3) Wt per rx Addendum: 11/21/18 at [address] Amended: Links added.
--- NOTE | 2018-11-21 18:15 | NUR ---
DC & wound vac instructions provided to pt & pt's . IV DC'd, tip intact. All belongings sent w/pt. WC to front lobby.
[2018-11-21] MEDS ORDERED: gabapentin 400mg capsule PO SCH (20:00)
== END 2018-11-21 18:25 | disposition home health service (06) | DRG 856 ==
LOC: ER 13:49 → SUR 3N 18:04 → CMPBEDREQ 11-13 00:22 → CICU 2S 11-13 16:19 → SUR 3N 11-15 18:39
PROVIDERS: ADMIT Internal Medicine; ATTEND Family Medicine
PROC: 0J9C3ZX Drainage of Pelvic Region Subcutaneous Tissue and Fascia, Percutaneous Approach, Diagnostic (ICD-10-PCS; 2018-11-12)
PROC: 30233N1 Transfusion of Nonautologous Red Blood Cells into Peripheral Vein, Percutaneous Approach (ICD-10-PCS; 2018-11-13)
PROC: 041J0JQ Bypass Left External Iliac Artery to Lower Extremity Artery with Synthetic Substitute, Open Approach (ICD-10-PCS; principal; 2018-11-21)
PROC: 04BL0ZZ Excision of Left Femoral Artery, Open Approach (ICD-10-PCS; 2018-11-21)
PROC: 0KXR0ZZ Transfer Left Upper Leg Muscle, Open Approach (ICD-10-PCS; 2018-11-21)
PROC: 06QN0ZZ Repair Left Femoral Vein, Open Approach (ICD-10-PCS; 2018-11-21)
DX: T81.49XA Infection following a procedure, other surgical site, initial encounter (principal); A41.9 Sepsis, unspecified organism; N17.0 Acute kidney failure with tubular necrosis; I97.638 Postprocedural hematoma of a circulatory system organ or structure following other circulatory system procedure; L03.116 Cellulitis of left lower limb; N18.3 Chronic kidney disease, stage 3 (moderate); I73.9 Peripheral vascular disease, unspecified; H35.30 Unspecified macular degeneration; G89.29 Other chronic pain; F41.0 Panic disorder [episodic paroxysmal anxiety]; E78.5 Hyperlipidemia, unspecified; E78.00 Pure hypercholesterolemia, unspecified; I99.8 Other disorder of circulatory system; I71.4 Abdominal aortic aneurysm, without rupture; I48.91 Unspecified atrial fibrillation; I25.10 Atherosclerotic heart disease of native coronary artery without angina pectoris; I12.9 Hypertensive chronic kidney disease with stage 1 through stage 4 chronic kidney disease, or unspecified chronic kidney disease; M19.90 Unspecified osteoarthritis, unspecified site; D64.9 Anemia, unspecified; N50.89 Other specified disorders of the male genital organs; Z96.651 Presence of right artificial knee joint; Z96.642 Presence of left artificial hip joint; Z79.899 Other long term (current) drug therapy; Z87.891 Personal history of nicotine dependence; Z95.5 Presence of coronary angioplasty implant and graft; Z86.73 Personal history of transient ischemic attack (TIA), and cerebral infarction without residual deficits; Z86.718 Personal history of other venous thrombosis and embolism; Z88.2 Allergy status to sulfonamides
CPT/HCPCS: 10030; 36415; 36600; 71045; 72192; 73700; 74018; 80047; 80048; 80053; 80202; 81001; 82803; 82948; 83735; 84132; 84145; 85018; 85025; 85027; 85610; 85730; 86885; 86900; 86901; 86920; 87040; 87070; 87075; 87077; 87102; 87186; 88304; 88305; 89051; 93005; 93971; 94002; 94003; 94640; 94668; 94760; 96365; 96367; 97116; 97161; 97530; 97535; 99285; A6258; A6402; A6449; A6454; A7000; C1758; C1768; C9250; G0378; J0330; J0360; J1100; J1170; J1644; J1940; J2001; J2250; J2270; J2405; J2543; J2704; J3010; J3370; J3475; J3480; J3490; J7030; J7120; P9016; P9045; Q0177; Q9967

== ENCOUNTER 2019-03-31 10:58 | Day surgery (SDC) | payer MEDICARE ==
[~2019-03-31] VITALS: Ht 182.9 cm; Wt 98.1 kg
[2019-03-31] VITALS (7 sets, daily range): BP systolic 80–105; BP diastolic 42–72
[~2019-03-31 10:58] MED LIST changes: -ACET-2119 PO; -ASPI-1053 PO; -BETA1TAB20 PO; -CALC600T12 PO; -CEPH500C5 PO; -CHLO4TAB PO; -CLOP75TA15 PO; -COU4T PO; -DIPH-423 PO; -FERR134T2 PO; -IRBE75TA9 PO; +LINE600T14 PO; -OMEG1CAP54 PO; -ONDA4TAB6 PO; -PANT40TA39 PO; -PHEN15SP NAS; -PRED1TAB PO; -ROSU20TA2 PO; -TERA5CAP4 PO
[2019-03-31] MEDS ORDERED: IRBE75TA30 PO (11:55)
[2019-03-31] MEDS ORDERED: CLOP75TA35 PO (11:55)
[2019-03-31] MEDS ORDERED: PANT-47 PO (11:55)
[2019-03-31] MEDS ORDERED: FINA5TAB11 PO (11:55)
== END 2019-03-31 13:25 | disposition home or self-care (01) ==
LOC: SSTAY O 10:58
PROVIDERS: ATTEND Radiology Diagnostic Radiology
DX: M71.22 Synovial cyst of popliteal space [Baker], left knee (principal); I48.91 Unspecified atrial fibrillation; I25.10 Atherosclerotic heart disease of native coronary artery without angina pectoris; E78.00 Pure hypercholesterolemia, unspecified; I10 Essential (primary) hypertension; G89.29 Other chronic pain; F41.0 Panic disorder [episodic paroxysmal anxiety]; M16.12 Unilateral primary osteoarthritis, left hip; Z86.718 Personal history of other venous thrombosis and embolism; Z86.73 Personal history of transient ischemic attack (TIA), and cerebral infarction without residual deficits; Z98.61 Coronary angioplasty status; Z98.890 Other specified postprocedural states; Z87.891 Personal history of nicotine dependence; Z72.89 Other problems related to lifestyle; Z88.2 Allergy status to sulfonamides; Z88.8 Allergy status to other drugs, medicaments and biological substances; Z79.899 Other long term (current) drug therapy
CPT/HCPCS: 10160; 76942